=== PATIENT | male | born 1995 | race Two or more races ===

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

== ENCOUNTER 2018-06-11 16:06 | Emergency (ER) | payer MEDICAID ==
[~2018-06-11] VITALS: Ht 175.3 cm; Wt 90.7 kg
[~2018-06-11 16:06] MED LIST changes: +NKM; +TYLENOL325 MG ORAL
[2018-06-11] MEDS ORDERED: PROZAC20 MG ORAL (16:15)
--- NOTE | 2018-06-11 16:19 | NUR ---
ED Nurse Note: Pt came into the ER s/p taking 8 aleve pm pills x 30 mins ago. Pt is complaining of dizziness. Pt denies having pain. Pt is now stating that he does not want to hurt himself. Pt has a hx of depression. Pt has been placed in a gown, all clothing and belongings placed in locker #2. A + Ox4. Ambulatory. Skin warm to touch.
[2018-06-11 16:23] VITALS: BP 131/82
[2018-06-11 17:19] LABS: BASOPHILS % (AUTO) 1.5 % (0.0-2.0); EOSINOPHILS % (AUTO) 0.9 % (0.0-3.0); HEMATOCRIT 48.9 % (42.0-52.0); HEMOGLOBIN 17.3 G/DL (14.2-18.0); LYMPHOCYTES % (AUTO) 33.1 % (20.0-45.0); MEAN CORPUSCULAR VOLUME 86 FL (80-99); MONOCYTES % (AUTO) 8.3 % (1.0-10.0); NEUTROPHILS % (AUTO) 56.3 % (45.0-75.0); PLATELET COUNT 127 K/UL (150-450); RED BLOOD COUNT 5.68 M/UL (4.70-6.10); RED CELL DISTRIBUTION WIDTH 10.8 % (11.6-14.8); WHITE BLOOD COUNT 5.3 K/UL (4.8-10.8)
[2018-06-11 17:25] LABS: ANION GAP 11 mmol/L (5-15); BLOOD UREA NITROGEN 14 mg/dL (7-18); CALCIUM 9.2 MG/DL (8.5-10.1); CARBON DIOXIDE 26 MMOL/L (21-32); CHLORIDE 103 MMOL/L (98-107); POTASSIUM 3.9 MMOL/L (3.5-5.1); SODIUM 140 MMOL/L (136-145)
--- NOTE | 2018-06-11 17:37 | Emergency Room Report ---
History of Present Illness General Chief Complaint: Suicidal Source: Patient Present Illness HPI 22-year-old male presents to the emergency department brought by family members for ingestion of 7 200 mg Advil prior to arrival. Patient supposedly ingested approximately 30 minutes ago and attempts to commit suicide. Patient denies SI at the moment he states he has a history of depression and takes Prozac and sees a psychiatrist once a month. Family member who is also with the patient states that the patient recently upped out of college and did not tell any of his family members. She denies drug use, EtOH use or history of smoking. Patient denies previous suicide attempts denies hallucinations, delusions or manic episodes. Denies history of TBI. Denies pain. Denies open wounds or bleeding. denies CP, Palpitations, SOB, Abdominal pain, LOC, AMS, N/V. pt. reports some mild constipation and states last BM was yesterday. Allergies: Coded Allergies: No Known Allergies (Unverified , 06/11/18) Patient History Past Medical History: see triage record Past Surgical History: none Pertinent Family History: none Reviewed Nursing Documentation: PMH: Agreed; PSxH: Agreed Nursing Documentation-PMH Past Medical History: No History, Except For Hx Cardiac Problems: No Hx Gastrointestinal Problems: No History Of Psychiatric Problem: Yes - DEPRESSION Hx Neurological Problems: No Review of Systems All Other Systems: negative except mentioned in HPI Physical Exam Vital Signs Date Time Temp Pulse Resp B/P (MAP) Pulse Ox O2 Delivery O2 Flow Rate FiO2 06/11/18 16:10 97.7 83 16 132/81 98 Room Air 06/11/18 16:23 98 Sp02 EP Interpretation: reviewed, normal General Appearance: no apparent distress, alert, GCS 15, non-toxic Head: normocephalic, atraumatic Eyes: bilateral eye normal inspection, bilateral eye PERRL ENT: hearing grossly normal, normal voice Neck: full range of motion Respiratory: chest non-tender, lungs clear, normal breath sounds, speaking full sentences Cardiovascular #1: regular rate, rhythm Gastrointestinal: normal bowel sounds, non tender, soft Rectal: deferred Genitourinary: normal inspection Musculoskeletal: back normal, gait/station normal, normal range of motion, non- tender Neurologic: alert, oriented x3, responsive, motor strength/tone normal, sensory intact, speech normal, grossly normal Psychiatric: judgement/insight normal, mood/affect normal - mildly flattened., no delusions, depressed affect, other - answers questions appropriately with sufficient detail, no bizzare thoughts or flights of ideas, follows commands, is cooperative. Skin: normal color, no rash, warm/dry, well hydrated Medical Decision Making PA Attestation Dr. Leiva is my supervising Physician whom patient management has been discussed with. Diagnostic Impression: Primary Impression: Depression Qualified Codes: F32.9 - Major depressive disorder, single episode, unspecified Additional Impression: Medication taken at higher dose than recommended ER Course 22-year-old male presents to the emergency department brought by family members for ingestion of 7 200 mg Advil prior to arrival. Patient supposedly ingested approximately 30 minutes ago and attempts to commit suicide. Patient denies SI at the moment he states he has a history of depression and takes Prozac and sees a psychiatrist once a month. Family member who is also with the patient states that the patient recently upped out of college and did not tell any of his family members. She denies drug use, EtOH use or history of smoking. Patient denies previous suicide attempts denies hallucinations, delusions or manic episodes. Denies history of TBI. Denies pain. Denies open wounds or bleeding. denies CP, Palpitations, SOB, Abdominal pain, LOC, AMS, N/V. pt. reports some mild constipation and states last BM was yesterday. Pt. Psychiatrist is Dr. Hinds. Pt has flat affect. non-aggressive, normal though process, and normal memory. Ddx considered but are not limited to OD, SI/HI, psychosis, UTI, intoxication Vital signs: are WNL, pt. is afebrile H&PE are most consistent with behavioral/mental health issue ORDERS: -CBC, CMP: Unremarkable -UA: negative for infection/ unremarkable see results attached. -UDS: positive for THC -Salicylates and Acetaminophen -WNL -Serum ETOH - No evidence of acute intoxication ED INTERVENTIONS: - None required at this time . This d/c plan has been coordinated with the consultation of a psychiatric professional: Dr. Armstrong. Brother who is with the patient agrees to supervise patient or have family member present with patient until psychiatric follow up. Psychiatric Urgent Care information/contact has been given. Brother states will take straight to [facility] urgent care after d/c. DISPOSITION: patient is medically cleared and is stable for close outpatient psychiatric follow up with family supervision. Care plan was made in collaboration with consulting psychiatric MD. Family verbalizes their agreement and understanding of care plan, discharge, return precautions, and close psychiatric follow up within 24 hours. Labs Test 06/11/18 16:47 White Blood Count 5.3 K/UL (4.8-10.8) Red Blood Count 5.68 M/UL (4.70-6.10) Hemoglobin 17.3 G/DL (14.2-18.0) Hematocrit 48.9 % (42.0-52.0) Mean Corpuscular Volume 86 FL (80-99) Mean Corpuscular Hemoglobin 30.5 PG (27.0-31.0) Mean Corpuscular Hemoglobin Concent 35.5 G/DL (32.0-36.0) Red Cell Distribution Width 10.8 % (11.6-14.8) Platelet Count 127 K/UL (150-450) Mean Platelet Volume 11.5 FL (6.5-10.1) Neutrophils (%) (Auto) 56.3 % (45.0-75.0) Lymphocytes (%) (Auto) 33.1 % (20.0-45.0) Monocytes (%) (Auto) 8.3 % (1.0-10.0) Eosinophils (%) (Auto) 0.9 % (0.0-3.0) Basophils (%) (Auto) 1.5 % (0.0-2.0) Sodium Level 140 MMOL/L (136-145) Potassium Level 3.9 MMOL/L (3.5-5.1) Chloride Level 103 MMOL/L (98-107) Carbon Dioxide Level 26 MMOL/L (21-32) Anion Gap 11 mmol/L (5-15) Blood Urea Nitrogen 14 mg/dL (7-18) Creatinine 1.0 MG/DL (0.55-1.30) Estimat Glomerular Filtration Rate > 60 mL/min (>60) Glucose Level 88 MG/DL (74-106) Calcium Level 9.2 MG/DL (8.5-10.1) Total Bilirubin 1.9 MG/DL (0.2-1.0) Direct Bilirubin 0.2 MG/DL (0.0-0.3) Aspartate Amino Transf (AST/SGOT) 33 U/L (15-37) Alanine Aminotransferase (ALT/SGPT) 43 U/L (12-78) Alkaline Phosphatase 83 U/L (46-116) Total Protein 7.8 G/DL (6.4-8.2) Albumin 5.0 G/DL (3.4-5.0) Globulin 2.8 g/dL Albumin/Globulin Ratio 1.8 (1.0-2.7) Salicylates Level < 0.2 ug/mL (2.8-20) Urine Opiates Screen Negative (NEGATIVE) Acetaminophen Level < 2 MCG/ML (10-30) Urine Barbiturates Screen Negative (NEGATIVE) Phencyclidine (PCP) Screen Negative (NEGATIVE) Urine Amphetamines Screen Negative (NEGATIVE) Urine Benzodiazepines Screen Negative (NEGATIVE) Urine Cocaine Screen Negative (NEGATIVE) Urine Marijuana (THC) Screen Positive (NEGATIVE) Serum Alcohol < 3 mg/dL Last Vital Signs Date Time Temp Pulse Resp B/P (MAP) Pulse Ox O2 Delivery O2 Flow Rate FiO2 06/11/18 16:23 97.5 68 20 131/82 97 Room Air 06/11/18 16:23 98 Status: improved Disposition: HOME, SELF-CARE Condition: Stable Physician Consult: Dr. Armstrong - telephone Referrals: [facility],REFERRING (PCP) [facility] Patient Instructions: Helping Someone Who is Suicidal, Suicidal Feelings: How to Help Yourself Additional Instructions: Take any previously prescribed medications as directed. 24-hour Family Supervision until follow up with life enrichment specialist Follow up with a Mental Health Specialist/ Psychiatrist within 24 hours, even if your symptoms have resolved. --Please review [facility] resource information provided Return sooner to ED if new symptoms occur, or current symptoms become worse. This d/c plan has been coordinated with the consultation of a psychiatric professional: Dr. Armstrong. Brother who is with the patient agrees to supervise patient or have family member present with patient until psychiatric follow up. Psychiatric Urgent Care information/contact has been given. - Please note that this Emergency Department Report was dictated using [employer] sanitarian technology software, occasionally this can lead to erroneous entry secondary to interpretation by the dictation equipment. Linsey Feliz Jun 11, 2018 17:37
[2018-06-11 17:39] LABS: ALANINE AMINOTRANSFERASE 43 U/L (12-78); ALBUMIN/GLOBULIN RATIO 1.8 (1.0-2.7); ALKALINE PHOSPHATASE 83 U/L (46-116); ASPARTATE AMINO TRANSFERASE 33 U/L (15-37); BILIRUBIN,TOTAL 1.9 MG/DL (0.2-1.0)
[2018-06-11 17:40] LABS: BILIRUBIN,DIRECT 0.2 MG/DL (0.0-0.3)
[2018-06-11 18:45] VITALS: BP 130/87
[2018-06-11 18:58] VITALS: BP 129/85
--- NOTE | 2018-06-11 18:59 | NUR ---
ER DISCHARGE NOTE: Patient is cleared to be discharged per ERMD, pt is aox4, on room air, with stable vital signs. pt was given dc and prescription instructions, pt was able to verbalize understanding, pt id band and iv site removed without complications. pt is able to ambulate with steady gait. pt took all belongings. Resources provided for pt. Pt and brother both signed consent. All belongigns removed from locker 2.
== END 2018-06-11 19:00 | disposition home or self-care (01) ==
LOC: EMR 16:46
DX: T39.312A Poisoning by propionic acid derivatives, intentional self-harm, initial encounter (principal); F32.9 Major depressive disorder, single episode, unspecified; Y92.9 Unspecified place or not applicable
CPT/HCPCS: 36415; 80053; 80307; 80329; 82248; 85025; 99284

== ENCOUNTER 2018-06-15 19:33 | Emergency (ER) | payer MEDICAID ==
[~2018-06-15] VITALS: Ht 175.3 cm; Wt 90.7 kg
[~2018-06-15 19:33] MED LIST changes: +PROZAC20 MG ORAL
--- NOTE | 2018-06-15 19:40 | NUR ---
ED Nurse Note: Patient walked in c/o abdominal pain, N/V/D, for 4 days. Patient states pain started when he overdosed on sleeping pills 4 days ago and was seen at [facility] ED. patient is alert and oriented x4, ambulatory with a steady gait, VSS
[2018-06-15 19:42] VITALS: BP 148/95
[2018-06-15] MEDS ORDERED: PROZAC20 MG ORAL (19:43)
[2018-06-15] MEDS ORDERED: GUANFACINE HCL1 MG PO (19:47)
[2018-06-15] MEDS ORDERED: Dicyclomine HCl 10mg/5ml oral soln ORAL ONE (20:00)
--- NOTE | 2018-06-15 20:10 | Emergency Room Report ---
History of Present Illness General Chief Complaint: Abdominal Pain Source: Patient Present Illness HPI Patient is a 22-year-old male who presented after increased crampy abdominal pain. Patient reports having increased nausea as well as burning sensation in the epigastric area. Patient recently had emergency department visit after ingesting seven 200 mg ibuprofen tablets. He reported having increased discomfort as well as some slight bloody stools. Reports having blood when he wipes. He reports having some increased diarrhea. He denies any fever.Patient had onset of symptoms over the past 2 days. Allergies: Coded Allergies: No Known Allergies (Unverified , 06/11/18) Patient History Past Medical History: see triage record Reviewed Nursing Documentation: PMH: Agreed; PSxH: Agreed Nursing Documentation-PMH Past Medical History: No History, Except For Hx Cardiac Problems: No Hx Gastrointestinal Problems: No Hx Neurological Problems: No - depression Review of Systems All Other Systems: negative except mentioned in HPI Physical Exam Vital Signs Date Time Temp Pulse Resp B/P (MAP) Pulse Ox O2 Delivery O2 Flow Rate FiO2 06/15/18 19:40 97.9 72 16 148/95 96 Room Air Sp02 EP Interpretation: reviewed, normal General Appearance: normal inspection, well appearing, no apparent distress, alert, GCS 15, non-toxic Head: atraumatic ENT: normal ENT inspection, hearing grossly normal, normal voice Neck: normal inspection, full range of motion, supple, no bony tend Respiratory: normal inspection, lungs clear, normal breath sounds, no respiratory distress, no retraction, no wheezing Cardiovascular #1: regular rate, rhythm, no edema Gastrointestinal: normal inspection, normal bowel sounds, non tender, soft, no guarding, no hernia Rectal: normal exam, normal rectal tone, other - heme neg stool Genitourinary: no CVA tenderness Musculoskeletal: normal inspection, back normal, normal range of motion Neurologic: normal inspection, alert, responsive, speech normal Psychiatric: normal inspection, judgement/insight normal, mood/affect normal Skin: normal inspection, normal color, no rash Medical Decision Making Diagnostic Impression: Primary Impression: Gastroenteritis Last Vital Signs Date Time Temp Pulse Resp B/P (MAP) Pulse Ox O2 Delivery O2 Flow Rate FiO2 06/15/18 19:40 97.9 72 16 148/95 96 Room Air Status: improved Disposition: HOME, SELF-CARE Condition: Stable Luigi Benoit MD Jun 15, 2018 20:10
[2018-06-15 20:30] LABS: EOSINOPHILS % (AUTO) 1.4 % (0.0-3.0); HEMATOCRIT 45.8 % (42.0-52.0); HEMOGLOBIN 15.9 G/DL (14.2-18.0); MEAN CORPUSCULAR VOLUME 87 FL (80-99); MONOCYTES % (AUTO) 8.3 % (1.0-10.0); NEUTROPHILS % (AUTO) 56.2 % (45.0-75.0); PLATELET COUNT 125 K/UL (150-450); WHITE BLOOD COUNT 5.8 K/UL (4.8-10.8)
[2018-06-15 20:41] LABS: ANION GAP 10 mmol/L (5-15); BLOOD UREA NITROGEN 8 mg/dL (7-18); CALCIUM 8.7 MG/DL (8.5-10.1); CARBON DIOXIDE 27 MMOL/L (21-32); CHLORIDE 104 MMOL/L (98-107); CREATININE 1.1 MG/DL (0.55-1.30); POTASSIUM 3.2 MMOL/L (3.5-5.1); SODIUM 141 MMOL/L (136-145)
[2018-06-15 20:51] LABS: ALANINE AMINOTRANSFERASE 33 U/L (12-78); ALBUMIN 4.2 G/DL (3.4-5.0); ALBUMIN/GLOBULIN RATIO 1.2 (1.0-2.7); ALKALINE PHOSPHATASE 87 U/L (46-116); ASPARTATE AMINO TRANSFERASE 18 U/L (15-37); BILIRUBIN,DIRECT 0.2 MG/DL (0.0-0.3); BILIRUBIN,TOTAL 1.5 MG/DL (0.2-1.0)
[2018-06-15] MEDS ORDERED: OMEPRAZOLE20 M2 ORAL (21:14)
[2018-06-15 21:24] VITALS: BP 133/91
--- NOTE | 2018-06-15 21:25 | NUR ---
ER DISCHARGE NOTE: Patient is cleared to be discharged per ERMD, pt is aox4, on room air, with stable vital signs. pt was given dc and prescription instructions, pt was able to verbalize understanding, pt id band and iv site removed without complications. pt is able to ambulate with steady gait. pt took all belongings.
== END 2018-06-15 21:24 | disposition home or self-care (01) ==
LOC: EMR 19:54
DX: K52.9 Noninfective gastroenteritis and colitis, unspecified (principal); F32.9 Major depressive disorder, single episode, unspecified
CPT/HCPCS: 36415; 80053; 82248; 83690; 84484; 85025; 96374; 99284; J2405

== ENCOUNTER 2019-04-23 23:31 | Emergency (ER) | payer MEDICAID ==
[~2019-04-23] VITALS: Ht 175.3 cm; Wt 94.8 kg
[~2019-04-23 23:31] MED LIST changes: +GUANFACINE HCL1 MG PO; +OMEPRAZOLE20 M2 ORAL
--- NOTE | 2019-04-23 23:49 | NUR ---
ED Nurse Note: Pt ambulated into ED from home [place] numbness and tingling to face and legs bilaterally. Pt reports feelings of numbness and tingling has disappeared at the moment of assessment. Pt VSS, no s/s of distress noted. Pt reports this is 2nd time taking MDMA and denies having this reaction last time he ingested the substance. Awaiting ERMD at bedside
[2019-04-23 23:56] VITALS: BP 149/83
--- NOTE | 2019-04-23 23:58 | NUR ---
ED Nurse Note: ERMD at bedside
[2019-04-24] MEDS ORDERED: LORazepam 1mg tab ORAL ONE
--- NOTE | 2019-04-24 00:06 | Emergency Room Report ---
History of Present Illness General Chief Complaint: Substance Abuse Source: Patient Present Illness HPI This a 23-year-old male with no past medical history. He said he does have history of depression anxiety. He presents with complaint of numbness to his face. He worried that he may have some electrolyte abnormality. Patient said that he took a couple of ecstasy pills tonight. When he got up he felt lightheaded and dizzy. It did trigger anxiety attack. He then complained of dizziness and numbness to his face. He was concerned that he may have some electrolyte abnormalities. Denies any fever chills but denies any nausea or vomiting. No suicidal thought homicidal thought. Eating drinking normally. Allergies: Coded Allergies: No Known Allergies (Unverified , 06/11/18) Patient History Past Medical History: see triage record, old chart reviewed Past Surgical History: none Pertinent Family History: none Social History: Reports: drug use; Denies: smoking Immunizations: other Reviewed Nursing Documentation: PMH: Agreed; PSxH: Agreed Nursing Documentation-PMH Past Medical History: No Stated History Hx Cardiac Problems: No Hx Gastrointestinal Problems: No Hx Neurological Problems: No - depression Review of Systems Eye: Denies: eye pain, blurred vision ENT: Denies: ear pain, nose congestion, throat swelling Respiratory: Denies: cough, shortness of breath Cardiovascular: Denies: chest pain, palpitations Gastrointestinal: Denies: abdominal pain, diarrhea, nausea, vomiting Musculoskeletal: Denies: back pain, joint pain Skin: Denies: rash Neurological: Denies: headache, numbness Endocrine: Denies: increased thirst, increased urine Hematologic/Lymphatic: Denies: easy bruising All Other Systems: negative except mentioned in HPI Physical Exam Vital Signs Date Time Temp Pulse Resp B/P (MAP) Pulse Ox O2 Delivery O2 Flow Rate FiO2 04/23/19 23:39 97.9 107 18 140/80 (100) 99 Room Air Vitals unremarkable Sp02 EP Interpretation: reviewed, normal General Appearance: well appearing, no apparent distress, alert Head: normocephalic, atraumatic Eyes: bilateral eye PERRL, bilateral eye EOMI ENT: hearing grossly normal, normal pharynx Neck: full range of motion, supple, no meningismus Respiratory: chest non-tender, lungs clear, normal breath sounds Cardiovascular #1: regular rate, rhythm, no murmur Gastrointestinal: normal bowel sounds, non tender, no mass, no organomegaly, no bruit, non-distended Musculoskeletal: back normal, normal range of motion, gait/station normal Psychiatric: anxious Medical Decision Making Diagnostic Impression: Primary Impression: Substance abuse Additional Impression: Hyperventilation syndrome ER Course Patient presents with numbness to his face probably secondary to hyperventilation. No evidence of ACS, PE, dissection to name a few. No evidence of TIA or CVA. Not suicidal homicidal. Will discharge home. Last Vital Signs Date Time Temp Pulse Resp B/P (MAP) Pulse Ox O2 Delivery O2 Flow Rate FiO2 04/23/19 23:56 97.9 92 16 149/83 99 Room Air Status: improved Disposition: HOME, SELF-CARE Condition: Stable Referrals: [facility],REFERRING (PCP) Patient Instructions: Substance Use Disorder Additional Instructions: Abstain from drugs and alcohol. Follow-up with your doctor in 7 days. Return if worse. Kris Clarke MD Apr 24, 2019 00:06
--- NOTE | 2019-04-24 00:07 | NUR ---
ED Nurse Note: All medications administered; no adverse reactions noted. no s/s of distress noted. Pt resting in bed.
[2019-04-24 00:35] VITALS: BP 135/80
--- NOTE | 2019-04-24 00:35 | NUR ---
ER DISCHARGE NOTE: Patient is cleared to be discharged home per ERMD, pt is aox4, on room air, with stable vital signs. pt was given dc and prescription instructions, pt was able to verbalize understanding, pt id band removed. pt is able to ambulate with steady gait. pt took all belongings.
== END 2019-04-24 00:35 | disposition home or self-care (01) ==
LOC: EMR 23:54
DX: F19.10 Other psychoactive substance abuse, uncomplicated (principal); F45.8 Other somatoform disorders; F41.9 Anxiety disorder, unspecified; F32.9 Major depressive disorder, single episode, unspecified
CPT/HCPCS: 99281

== ENCOUNTER 2019-08-15 17:45 | Emergency (ER) | payer MEDICAID ==
[~2019-08-15] VITALS: Ht 175.3 cm; Wt 85.3 kg
[2019-08-15 17:56] VITALS: BP 131/71
--- NOTE | 2019-08-15 18:13 | Emergency Room Report ---
History of Present Illness General Chief Complaint: Earache Source: Patient Present Illness HPI 23-year-old male with no symptom past medical history here complaining of several days of low hearing leading to hearing loss in the right ear without any pain. Reports that he often wears headphones for prolonged hours. Complains of minimal dizziness that happened earlier today however denies vertigo. Denies any dizziness right now. Denies any cough and congestion, shortness of breath, fever and chills. Complains of minimal ringing the reports that usually when he uses his headphones for too long he gets ringing in both ears however today was only in the right ear and was concerning to him. Denies any neck pain, sore throat, fall or injury. Denies any pain in the ear at any time. Lots of cerumen noted inside the ear. Patient does not elicit any pain upon examination of the ear. Denies headache, dizziness, cough and congestion. Denies continuous tinnitus. Denies tobacco smoke, marijuana use, no other associated symptoms. Allergies: Coded Allergies: No Known Allergies (Unverified , 06/11/18) COVID-19 Screening Contact w/high risk pt: No Recent Travel to affected area: No Experienced COVID-19 symptoms?: No COVID-19 Testing performed YARN SKEINS EXAMINER: No Patient History Past Medical History: see triage record Past Surgical History: none Pertinent Family History: none Immunizations: UTD Reviewed Nursing Documentation: PMH: Agreed; PSxH: Agreed Nursing Documentation-PMH Past Medical History: No History, Except For Hx Cardiac Problems: No Hx Hypertension: No Hx Diabetes: No Hx Gastrointestinal Problems: No Hx Neurological Problems: No - anxiety Review of Systems All Other Systems: negative except mentioned in HPI Physical Exam Vital Signs Date Time Temp Pulse Resp B/P (MAP) Pulse Ox O2 Delivery O2 Flow Rate FiO2 08/15/19 17:56 98.4 86 17 131/71 (91) 97 Room Air Sp02 EP Interpretation: reviewed, normal General Appearance: no apparent distress, alert, GCS 15, non-toxic Head: normocephalic, atraumatic, other - No mastoid tenderness noted Eyes: bilateral eye normal inspection, bilateral eye PERRL ENT: normal pharynx, no angioedema, normal voice, other - Cerumen impaction right ear, unable to visualize TM, tragus and pinna are nontender to palpation Neck: supple Respiratory: chest non-tender, lungs clear, normal breath sounds, no rhonchi, no wheezing, speaking full sentences Cardiovascular #1: regular rate, rhythm, no edema, no murmur Gastrointestinal: normal bowel sounds, non tender, soft, no mass, no organomegaly, no peritonitis, no bruit, non-distended, no guarding, no rebound Neurologic: alert, motor strength/tone normal, oriented x3, sensory intact, responsive, speech normal Psychiatric: judgement/insight normal, memory normal, mood/affect normal, no suicidal/homicidal ideation Skin: no rash Lymphatic: no adenopathy Medical Decision Making PA Attestation All my diagnosis and treatment plans were reviewed ad discussed with my supervising physician Dr. Granados Diagnostic Impression: Primary Impression: Cerumen impaction Additional Impressions: Eustachian tube disorder Nonspecific dizziness ER Course 23-year-old male with no symptom past medical history here complaining of several days of low hearing leading to hearing loss in the right ear without any pain. Reports that he often wears headphones for prolonged hours. Complains of minimal dizziness that happened earlier today however denies vertigo. Denies any dizziness right now. Denies any cough and congestion, shortness of breath, fever and chills. Complains of minimal ringing the reports that usually when he uses his headphones for too long he gets ringing in both ears however today was only in the right ear and was concerning to him. Denies any neck pain, sore throat, fall or injury. Denies any pain in the ear at any time. Lots of cerumen noted inside the ear. Patient does not elicit any pain upon examination of the ear. Denies headache, dizziness, cough and congestion. Denies continuous tinnitus. Denies tobacco smoke, marijuana use, no other associated symptoms. Ddx considered but are not limited to: Otitis media, otitis externa, cerumen impaction, tinnitus, benign positional vertigo, Vital signs: are WNL, pt. is afebrile H&PE are most consistent with: Cerumen impaction, eustachian tube disorder, nonspecific dizziness most likely secondary to cerumen impaction ORDERS: Meclizine, Debrox, few days and he is able to get all the cerumen without any ear pain no signs of infection are likely and does not need to take the antibiotic ER intervention: DISCHARGE: At this time pt. is stable for d/c to home. Will provide printed patient care instructions, and any necessary prescriptions. Care plan and follow up instructions have been discussed with the patient prior to discharge. Patient to follow-up emergency room. At this time no imaging is needed as there is no mass or tenderness noted and patient is not dizzy and does not elicit any vertigo symptoms right now reports that tinnitus is also been resolved. Patient was advised to avoid wearing headphones for prolonged times. Last Vital Signs Date Time Temp Pulse Resp B/P (MAP) Pulse Ox O2 Delivery O2 Flow Rate FiO2 08/15/19 17:56 98.4 86 17 131/71 (91) 97 Room Air Disposition: HOME, SELF-CARE Condition: Stable Scripts Loratadine/Pseudoephedrine (CLARITIN-D 12 HOUR TABLET) 1 Each Tab.er.12h 1 TAB ORAL EVERY 12 HOURS, #14 TAB Prov: Teresa Gibbs 08/15/19 Carbamide Peroxide (DEBROX) 15 Ml Drops 10 DROP RIGHT EAR TWICE A DAY for 4 Days, #15 ML 0 Refills Prov: Teresa Gibbs 08/15/19 Meclizine Hcl* (MECLIZINE*) 25 Mg Tablet 25 MG ORAL THREE TIMES A DAY for 5 Days, #15 TAB Prov: Teresa Gibbs 08/15/19 Amoxicillin/Potassium Clav 875-125* (AUGMENTIN 875-125 TABLET*) 1 Each Tablet 1 TAB ORAL TWICE A DAY for 7 Days, #14 TAB Prov: Teresa Gibbs 08/15/19 Patient Instructions: Cerumen Impaction, Dizziness, Iaym-or-Fizj, Earache Additional Instructions: Medication as directed, follow with your primary doctor, avoid wearing headphones, referral to ear nose throat doctor may be needed. Teresa Gibbs Aug 15, 2019 18:13
[2019-08-15] MEDS ORDERED: DEBROX15 M1 RIGHT EAR (18:14)
[2019-08-15] MEDS ORDERED: MECLIZINE HCL25 MG ORAL (18:14)
[2019-08-15] MEDS ORDERED: CLARITIN-D 121 EAC1 ORAL (18:14)
[2019-08-15] MEDS ORDERED: AUGMENTIN 875-1 EAC1 ORAL (18:14)
[2019-08-15 18:28] VITALS: BP 131/71
== END 2019-08-15 18:28 | disposition home or self-care (01) ==
LOC: EMR 18:05
DX: H61.21 Impacted cerumen, right ear (principal); R42 Dizziness and giddiness; H69.90 Unspecified Eustachian tube disorder, unspecified ear; F41.9 Anxiety disorder, unspecified
CPT/HCPCS: 99282

== ENCOUNTER 2019-11-04 19:43 | Emergency (ER) | payer MEDICAID ==
[~2019-11-04] VITALS: Ht 172.7 cm; Wt 77.1 kg
[~2019-11-04 19:43] MED LIST changes: +AUGMENTIN 875-1 EAC1 ORAL; +CLARITIN-D 121 EAC1 ORAL; +DEBROX15 M1 RIGHT EAR; +MECLIZINE HCL25 MG ORAL
[2019-11-04 20:00] VITALS: BP 120/76
[2019-11-04] MEDS ORDERED: Acetaminophen 500mg (ES) tab ORAL ONE (20:00)
--- NOTE | 2019-11-04 20:00 | Emergency Room Report ---
History of Present Illness General Chief Complaint: Flu Like Symptoms Source: Patient Present Illness HPI Patient is a 24-year-old male denies any significant past medical history who presents to the ER complaining of fever and body aches. Patient denies any chills. He denies any rash. He denies any sick contacts of people with known COVID. He denies any abdominal pain but complains of one episode of nausea with nonbloody nonbilious vomitus. He denies any recent travel. He admits to smoking. He denies any chest pain or difficulty breathing. Allergies: Coded Allergies: No Known Allergies (Unverified , 06/11/18) COVID-19 Screening Contact w/high risk pt: No Recent Travel to affected area: No Experienced COVID-19 symptoms?: Yes COVID-19 Testing performed FACING BASTER: No Patient History Reviewed Nursing Documentation: PMH: Agreed; PSxH: Agreed Nursing Documentation-PM Past Medical History: No Stated History Hx Cardiac Problems: No Hx Hypertension: No Hx Diabetes: No Hx Gastrointestinal Problems: No Hx Neurological Problems: No - anxiety Review of Systems All Other Systems: negative except mentioned in HPI Physical Exam Vital Signs Date Time Temp Pulse Resp B/P (MAP) Pulse Ox O2 Delivery O2 Flow Rate FiO2 11/04/19 19:54 103.3 107 18 120/76 (91) 99 Room Air Sp02 EP Interpretation: reviewed, normal General Appearance: no apparent distress, alert, GCS 15, non-toxic Head: normocephalic, atraumatic Eyes: bilateral eye normal inspection, bilateral eye PERRL ENT: hearing grossly normal, normal pharynx, no angioedema, normal voice Neck: full range of motion, supple/symm/no masses Respiratory: chest non-tender, lungs clear, normal breath sounds, speaking full sentences Cardiovascular #1: tachycardia Gastrointestinal: non tender, soft, no guarding, no rebound Rectal: deferred Musculoskeletal: normal range of motion Neurologic: life educator III-XII nml as tested, oriented x3 Psychiatric: no suicidal/homicidal ideation Skin: no rash Lymphatic: no adenopathy Medical Decision Making Diagnostic Impression: Primary Impression: Influenza-like symptoms ER Course Patient nontoxic-appearing with no respiratory distress. Heart rate and temperature improved after Tylenol and Motrin. Patient's chest x-ray demonstrates no acute cardiopulmonary pathology. COVID-19 PCR negative. I explained to the patient that there is up to a 30% false-negative rate. I told him to isolate himself until he is afebrile for 48 hours. He can always be retested at another time. After discussing risks and benefits of further diagnostics, treatment plans, as well as indications for and risks of admission, the patient is agreeable to being discharged home. I have explained that their evaluation and treatment in the emergency department today is an important step towards them achieving better health but that their evaluation today is not intended to replace further evaluation and treatment by a physician in their local clinic. I have explained that while the current findings suggest no immediate life threatening emergency they will require further evaluation and treatment by a physician of their choice in their area. They understand that it will be necessary for them to review the final reports of their ED visit with their clinic physician. We have reviewed indications for return to the Emergency Department. I have explained that additional time may need to pass and/or additional testing as an outpatient may be necessary before a definitive diagnosis can be made. They tell me they are willing to follow up as instructed within the timeframe I recommend. They appear to understand what we discussed. Additionally they understand that if they are unable to be seen by an outpatient physician they are welcome, and in fact should, return to the Emergency Department for a repeat evaluation. The patient is stable at time of discharge. Chest X-Ray Diagnostic Results Chest X-Ray Diagnostic Results : Chest X-Ray Ordered: Yes # of Views/Limited/Complete: 1 View Indication: Other - fever EP Interpretation: Yes Interpretation: no consolidation, no effusion, no pneumothorax, no acute cardiopulmonary disease Impression: No acute disease Last Vital Signs Date Time Temp Pulse Resp B/P (MAP) Pulse Ox O2 Delivery O2 Flow Rate FiO2 11/04/19 19:54 103.3 107 18 120/76 (91) 99 Room Air Disposition: HOME, SELF-CARE Condition: Stable Scripts Ondansetron* (ZOFRAN*) 4 Mg Tablet 4 MG ORAL Q6H PRN for Nausea & Vomiting, #10 TAB Prov: Alexa Allen M.D. 11/04/19 Ibuprofen* (MOTRIN*) 600 Mg Tablet 600 MG ORAL FOUR TIMES A DAY, #30 TAB 0 Refills Prov: Alexa Allen M.D. 11/04/19 Additional Instructions: The patient was provided with discharge instructions, notified to follow-up with a primary care doctor and or specialist in the next 24-48 hours, and to return to the ED if they have worsening of their symptoms. Please note that this report is being documented using [email or web address] technology. This can lead to erroneous entry secondary to incorrect interpretation by the dictating instrument. Alexa Allen M.D. Nov 04, 2019 20:00
[2019-11-04] MEDS ORDERED: IBUPROFEN600 M1 ORAL (20:42)
[2019-11-04] MEDS ORDERED: ZOFRAN4 M3 ORAL (20:43)
[2019-11-04 21:00] VITALS: BP 117/81
--- NOTE | 2019-11-05 13:48 | Diagnostic Imaging Report ---
Indication: Shortness of breath Technique: Portable AP view of the chest Comparison: None Findings: Heart size and mediastinal contours are within normal limits for AP technique. There is no focal airspace consolidation, pneumothorax or pleural effusion. Osseous structures demonstrate no acute abnormality. Impression: No radiographic evidence of acute cardiopulmonary disease.
== END 2019-11-04 21:00 | disposition home or self-care (01) ==
LOC: EMR 20:10
DX: J11.1 Influenza due to unidentified influenza virus with other respiratory manifestations (principal); F41.9 Anxiety disorder, unspecified; R00.0 Tachycardia, unspecified
CPT/HCPCS: 71045; U0002; Z7502; 99283